=== PATIENT | male | born 1985 | race Caucasian/White ===

== ENCOUNTER 2020-05-14 16:42 | Outpatient (REF) | payer BC, SELFPAY ==
[2020-05-16 05:43] LABS: SARS-CoV-2 RNA Undetected (Undetected); SARS-CoV-2 Specimen Source Nasopharynx
== END 2020-05-14 17:02 ==
LOC: NCHCN 16:42
PROVIDERS: PCP Nurse Practitioner Family; Visit Provider Nurse Practitioner Family
DX: Z20.828 Contact with and (suspected) exposure to other viral communicable diseases (principal)
CPT/HCPCS: U0003

== ENCOUNTER 2021-10-18 20:09 | Outpatient (REF) | payer BC, SELFPAY ==
[2021-10-18 21:36] LABS: Hemoglobin A1C 5.3 % (<5.7)
[2021-10-18 21:52] LABS: BUN 13 mg/dL (7-18); CREATININE 0.8 mg/dL (0.70-1.30); Calcium 9.7 mg/dL (8.5-10.1); Calculated LDL 134 mg/dL (<100); Chloride 100 mmol/L (98-107); Cholesterol 219 mg/dL (<200); Glucose 86 mg/dL (74-106); HDL Cholesterol 38 mg/dL (40-60); Potassium 4.2 mmol/L (3.5-5.1); Sodium 137 mmol/L (136-145); TSH (W/Ref FT4) 1.62 uIU/mL (0.36-3.74); Triglyceride 239 mg/dL (<150)
[2021-10-21 09:59] LABS: Hepatitis C Ab w Rflx HCV PCR Negative (Negative)
[2021-10-21 10:16] LABS: HIV-1/2 Ag & Ab Screen Negative (Negative)
== END 2021-10-18 20:10 | disposition home or self-care (01) ==
LOC: NCHCN 20:09
PROVIDERS: PCP Nurse Practitioner Family; Visit Provider Family Medicine
DX: I10 Essential (primary) hypertension (principal); Z00.00 Encounter for general adult medical examination without abnormal findings; Z11.4 Encounter for screening for human immunodeficiency virus [HIV]; Z11.59 Encounter for screening for other viral diseases
CPT/HCPCS: 80048; 80061; 86803; 87389; 83036; 84443

== ENCOUNTER 2023-12-06 10:21 | Emergency (ER) | payer BC, SELFPAY ==
[2023-12-06 10:32] VITALS: BP 147/90; PULSE 87; RESP 17; TEMP 37; O2SAT 99
--- NOTE | 2023-12-06 12:42 | NUR.NOTE ---
Referral faxed to Podiatry for right foot pain in the next available time slot.
--- NOTE | 2023-12-06 12:45 | DI.RAD_ITS ---
Exam(s) XR ANKLE RT COMPLETE EXAM: XR ANKLE RT COMPLETE CLINICAL HISTORY: ANKLE PAIN. TECHNIQUE: 2D digital imaging was performed. COMPARISON: No exams were available for comparison FINDINGS: 3 views No significant soft tissue swelling. No fracture or widening of the ankle mortise. Talar dome unrem arkable. Base of 5th metatarsal unremarkable. Bone density normal. No osseous lesions. No evidenc e of tarsal coalition. No degenerative changes evident. IMPRESSION: No significant osseous findings in the ankle. DATA REPOSITORY: RADIATION DOSE DELIVERED:
--- NOTE | 2023-12-06 12:45 | DI.RAD_ITS ---
Exam(s) XR FOOT RT COMPLETE EXAM: XR FOOT RT COMPLETE CLINICAL HISTORY: FOOT PAIN. TECHNIQUE: 2D digital imaging was performed. COMPARISON: No exams were available for comparison FINDINGS: 3 views No evidence of fracture or diastasis of the Lisfranc joint. Bone density normal. No osseous lesions . Small enthesophyte is noted on the posterior calcaneus Achilles insertion site. There is no infer ior calcaneal spur. Great toe metatarsophalangeal joint appears unremarkable. There is an oval calcification measuring 7 x 4 mm associated with the medial aspect of the interphala ngeal joint of the great toe and probably representing a subjacent atypical sesamoid at this level. Both sesamoid bones subjacent to the great toe metatarsal head appear unremarkable. IMPRESSION: No acute fractures evident in the foot. Incidental other finding as above. DATA REPOSITORY: RADIATION DOSE DELIVERED:
--- NOTE | 2023-12-06 12:50 | DI.VRAD_ITS ---
PROCEDURE INFORMATION: Exam: XR Right Ankle Exam date and time: 12/06/2023 12:28 PM Age: 38 years old Clinical indication: Pain; Ankle; Right; Additional info: Injury 1 week ago TECHNIQUE: Imaging protocol: Radiologic exam of the right ankle. Views: 3 or more views. COMPARISON: No relevant prior studies available. FINDINGS: Bones/joints: No fracture or other acute osseous abnormality of the right ankle is identified. Normal alignment at the ankle mortise. Soft tissues: No soft tissue gas or radiodense foreign body. IMPRESSION: No evidence of fracture. Dictated and Authenticated by: Umesh Echeverria MD. Ordering:[facility] Jeremy Glynn MD
--- NOTE | 2023-12-06 12:52 | DI.VRAD_ITS ---
PROCEDURE INFORMATION: Exam: XR Right Foot Exam date and time: 12/06/2023 12:29 PM Age: 38 years old Clinical indication: Pain; Foot; Right; Patient HX: Inj 1 week ago; Additional info: Injury 1 week ago TECHNIQUE: Imaging protocol: Radiologic exam of the right foot. Views: 3 or more views. COMPARISON: CR XR ANKLE RT COMPLETE 12/06/2023 12:28 PM FINDINGS: Bones/joints: No fracture or other acute osseous abnormality of the right foot is identified.. Soft tissues: Normal. IMPRESSION: No acute findings. Dictated and Authenticated by: Umesh Echeverria MD. Ordering:[facility] Jeremy Glynn MD
--- NOTE | 2023-12-06 15:24 | W.ED.GENAD ---
Discharge Plan Disposition Patient Disposition: Home Discharge Details Clinical Impression: Acute pain of right foot Primary Care Provider: Calin Barclay ED Provider: Breanna Luna Home Meds and New Rx's Prescriptions: New meloxicam 15 mg tablet 15 mg PO DAILY Qty: 30 0RF No Action albuterol sulfate 8.5 GM HFA aerosol inhaler 1 - 2 puff Inhalation hs prn Qty: 1 ibuprofen 800 MG tablet 800 mg PO tid prn Qty: 90 Discharge Instructions Additional Instructions: X-ray negative today. Symptoms likely secondary to overuse. Use the walking boot for comfort as needed. Start medication as prescribed. Do not combine this with other NSAIDs. You have been referred to podiatry for follow-up, they will contact you with your appointment time. Discharge Data Discharge Date/Time-TO BE ENTERED AT DEPARTURE: 12/06/23 13:08 HPI General Date/Time Provider Initiated Documentation: 12/06/23 11:22. Limitations to Documentation: no limitations. Information obtained by: patient. HPI Narrative: 38-year-old gentleman without significant past medical history presents for evaluation of right ankle pain. Pain has been ongoing for the last week and not improving with rest, elevation or NSAIDs. 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 He reports his symptoms started after a game last week. He states that he has been having to limp and has been using crutches to help him get around. He did denies a specific event, does not recall rolling the ankle or having a specific injury. Related Data Home Medications Medication Instructions Recorded Confirmed albuterol sulfate 90 mcg/actuation 1 - 2 puff inhalation hs prn ##1 11/10/14 12/06/23 aerosol inhaler ibuprofen 800 mg tablet 800 mg PO tid prn #90 tab-caps 01/17/15 12/06/23 meloxicam 15 mg tablet 15 mg PO DAILY #30 tabs 12/06/23 Previous Rx's Medication Instructions Recorded meloxicam 15 mg tablet 15 mg PO DAILY #30 tabs 12/06/23 Allergies Allergy/AdvReac Type Severity Reaction Status Date / Time No Known Allergies Allergy Unverified 12/06/23 11:11 General Stated Complaint: Orthopedic NADER: 4 Exam Narrative Exam Narrative: Review of Systems: All systems reviewed & are unremarkable except as noted in HPI and below Well-developed, no acute distress NCAT PERRL, normal conjunctiva RRR Unlabored respiratory effort Nondistended abdomen Right ankle without obvious deformity, significant swelling or effusion, 2+ pulse, neurovascularly intact, there is some generalized tenderness but more particularly to the foot, with tenderness of the plantar fascia No rashes or lesions. no focal neurologic deficits Appropriate mood and affect Course Vital Signs Vital signs: Vital Signs Temperature 37 C 12/06/23 10:32 Pulse 87 12/06/23 10:32 Respiratory Rate 17 12/06/23 10:32 Blood Pressure 147/90 H 12/06/23 10:32 Pulse Oximetry 99 12/06/23 10:32 Temperature 37 C 12/06/23 10:32 Temperature Source Temporal Artery Scan 12/06/23 10:32 Pulse 87 12/06/23 10:32 Respiratory Rate 17 12/06/23 10:32 Respiratory Effort Normal, Non-Labored 12/06/23 12:03 Blood Pressure 147/90 H 12/06/23 10:32 Pulse Oximetry 99 12/06/23 10:32 Pain Level 5 12/06/23 10:32 Medical Decision Making Emergent evaluation of right foot and ankle pain. No known specific trauma, but does have repeated use. X-ray obtained and this is unremarkable for acute bony process. The patient was provided with a boot, he has crutches to help assist with walking. Prescribed Mobic and advised not to take in conjunction with other NSAIDs. Referred to podiatry for further follow-up. Suspect that this is likely tendinitis or overuse injury of some kind. Medical Records Medical records reviewed: Yes I reviewed the patient's medical records. Quality:SDOH Health Related Social Needs: No Data to Display [facility] All Active Problems Acute pain of right foot (Acute) Family History Mother No problems noted. Father No problems noted. Sister No problems noted. Sister No problems noted. Sister No problems noted. Brother No problems noted. Brother No problems noted. Brother No problems noted. Brother No problems noted. Social History Smoking/Tobacco Use Status: Never Smoking risk assessment performed?: Yes Alcohol Intake: never Drug use: Never Substance use type: does not use Housing: house
== END 2023-12-06 13:08 | disposition home or self-care (01) ==
PROVIDERS: Emergency Provider Emergency Medicine; PCP Family Medicine
DX: M25.571 Pain in right ankle and joints of right foot (principal)
CPT/HCPCS: 99283; 73610; 73630